=== PATIENT | male | born 1945 | race Caucasian/White ===

== ENCOUNTER 2017-05-30 09:57 | Inpatient (IN) | payer OTHER ==
[~2017-05-30] VITALS: Ht 185.4 cm; Wt 120.6 kg
[~2017-05-30 09:57] MED LIST: ACARBOSE100 MG PO; ALLOPURINOL100 MG PO; ASPIR-LOW81 MG PO; ATORVASTATIN CA80 MG PO; CYANOCOBALAM1000 MCG PO; GLIPIZIDE10 MG PO; GLUCOPHAGE500 MG PO; LASIX40 MG PO; LISINOPRIL40 MG PO; LORATADINE10 M2 PO; METOPROLOL TART50 MG PO; NEURONTIN300 MG PO; ONGLYZA2.5 MG PO; PROAIR HFA8.5 GM IH; TERAZOSIN HCL2 MG PO
[2017-05-30 11:09] LABS: HEMATOCRIT 35.4 % (38.0-50.0); HEMOGLOBIN 11.7 G/DL (12.5-16.6); MCH 30.8 PG (29.0-34.0); MCHC 33.1 G/DL (30.0-36.0); MCV 93.2 FL (86-99); PLATELET COUNT 165 K/uL (156-360); RBC DIS.WIDTH-SD 51.4 % (39-53)
[2017-05-30 11:20] LABS: CHLORIDE 104 mEq/L (99-109); POTASSIUM 3.8 mEq/L (3.7-5.4); SODIUM 139 mEq/L (136-147)
[2017-05-30 11:22] LABS: GLUCOSE 254 mg/dL (70-99)
[2017-05-30 11:26] LABS: CREATININE 1.9 mg/dL (0.6-1.3); GFR ESTIMATE (CALCULATED) 37 mL/min/ (58.99-99999); UREA NITROGEN (BUN) 21 mg/dL (9-23)
[2017-05-30 11:31] LABS: TROP-I INTERPRETATION NEGATIVE; TROPONIN-I < 0.01 ng/mL (0.0-0.30)
[2017-05-30 15:57] LABS: MAGNESIUM 1.5 mg/dL (1.3-2.7)
[2017-05-30 16:08] LABS: TROP-I INTERPRETATION NEGATIVE; TROPONIN-I 0.01 ng/mL (0.0-0.30)
[2017-05-30] MEDS ORDERED: NOVOLIN,HU100 UNITS/ SC ×2 (16:42→16:43)
[2017-05-30] MEDS ORDERED: PRILOSEC20 MG PO (16:44)
[2017-05-30] MEDS ORDERED: FISH OIL 1,0001 EAC7 PO (16:45)
[2017-05-30] MEDS ORDERED: ERGOCALCIF50000 UNIT PO (16:47)
[2017-05-30] MEDS ORDERED: CALCITRIOL0.25 MCG PO (16:47)
[2017-05-30] MEDS ORDERED: TYLENOL EXTRA500 MG PO (16:48)
[2017-05-30] MEDS ORDERED: GABAPENTIN300 MG PO (16:49)
[2017-05-30 17:17] LABS: THYROTROPIN (TSH) 2.4 MIU/L (0.4-5.5)
[2017-05-30 17:38] LABS: HDL CHOLESTEROL 30 MG/DL (Desirable>=40); LDL CHOLESTEROL 23 mg/dL (Desirable<100); NON-HDL CHOLESTEROL 59 mg/dL (Desirable<160); TOTAL CHOLESTEROL 89 mg/dL (Desirable<200); TRIGLYCERIDES 182 MG/DL (Normal: <150)
[2017-05-30 21:52] VITALS: BP 149/90; BP 175/90
[2017-05-30 22:00] LABS: BASOPHIL (%) 0.4 % (0-1); EOSINOPHIL (%) 0.1 % (0-5); HEMATOCRIT 36.4 % (38.0-50.0); HEMOGLOBIN 11.7 G/DL (12.5-16.6); IMMATURE GRANULOCYTE (%) 0.9 % (0.0-0.7); LYMPHOCYTE (%) 18.3 % (15-42); LYMPHOCYTE COUNT 1.8 K/uL (1.0-2.8); MCH 30.3 PG (29.0-34.0); MCHC 32.1 G/DL (30.0-36.0); MCV 94.3 FL (86-99); MONOCYTE (%) 6.6 % (3-12); MONOCYTE COUNT 0.6 K/uL (0-0.8); NEUTROPHIL (%) 73.7 % (45-76); NEUTROPHIL COUNT 7.2 K/uL (1.8-6.4); PLATELET COUNT 193 K/uL (156-360); RBC DIS.WIDTH-CV 15.4 % (11.8-14.6); RED BLOOD COUNT 3.86 M/uL (4.00-5.50); WHITE BLOOD COUNT 9.8 K/uL (4.1-10.2)
[2017-05-30 22:22] LABS: TROP-I INTERPRETATION NEGATIVE; TROPONIN-I 0.02 ng/mL (0.0-0.30)
[2017-05-30 23:52] VITALS: BP 146/65
[2017-05-31] VITALS (7 sets, daily range): BP systolic 130–189; BP diastolic 70–888
[2017-05-31 07:11] LABS: CHLORIDE 102 MEQ/L (99-109); CREATININE 1.7 MG/DL (0.6-1.3); GFR ESTIMATE (CALCULATED) 42 mL/min/ (58.99-99999); GLUCOSE 208 mg/dL (70-99); POTASSIUM 4.3 MEQ/L (3.7-5.4); SODIUM 138 MEQ/L (136-147); UREA NITROGEN (BUN) 21 mg/dL (9-23)
[2017-05-31 13:56] LABS: HEMOGLOBIN A1c (GLYCOHEMOGLOB) 10.1 % (Below 5.7)
[2017-06-01 03:42] VITALS: BP 148/80
[2017-06-01 06:45] LABS: BASOPHIL (%) 0.5 % (0-1); EOSINOPHIL (%) 0.1 % (0-5); HEMATOCRIT 33.2 % (38.0-50.0); HEMOGLOBIN 10.6 G/DL (12.5-16.6); IMMATURE GRANULOCYTE (%) 0.7 % (0.0-0.7); LYMPHOCYTE (%) 15.3 % (15-42); LYMPHOCYTE COUNT 1.3 K/uL (1.0-2.8); MCH 30.5 PG (29.0-34.0); MCHC 31.9 G/DL (30.0-36.0); MCV 95.4 FL (86-99); MONOCYTE (%) 9.2 % (3-12); MONOCYTE COUNT 0.8 K/uL (0-0.8); NEUTROPHIL (%) 74.2 % (45-76); NEUTROPHIL COUNT 6.1 K/uL (1.8-6.4); PLATELET COUNT 165 K/uL (156-360); RBC DIS.WIDTH-CV 15.7 % (11.8-14.6); RBC DIS.WIDTH-SD 53.7 % (39-53); RED BLOOD COUNT 3.48 M/uL (4.00-5.50); WHITE BLOOD COUNT 8.3 K/uL (4.1-10.2)
[2017-06-01 06:56] VITALS: BP 174/82
[2017-06-01 07:05] LABS: CHLORIDE 106 MEQ/L (99-109); CREATININE 1.9 MG/DL (0.6-1.3); GFR ESTIMATE (CALCULATED) 37 mL/min/ (58.99-99999); SODIUM 142 MEQ/L (136-147); UREA NITROGEN (BUN) 23 mg/dL (9-23)
[2017-06-01 07:09] LABS: GLUCOSE 120 mg/dL (70-99)
[2017-06-01 11:12] VITALS: BP 123/58
[2017-06-01 15:14] VITALS: BP 119/63
[2017-06-01 20:06] VITALS: BP 174/74
[2017-06-01 23:26] VITALS: BP 187/86
[2017-06-02] VITALS (7 sets, daily range): BP systolic 138–176; BP diastolic 66–111
[2017-06-02 06:40] LABS: CHLORIDE 106 MEQ/L (99-109); CREATININE 2.1 MG/DL (0.6-1.3); GFR ESTIMATE (CALCULATED) 33 mL/min/ (58.99-99999); GLUCOSE 119 mg/dL (70-99); POTASSIUM 4.1 MEQ/L (3.7-5.4); SODIUM 142 MEQ/L (136-147); UREA NITROGEN (BUN) 23 mg/dL (9-23)
[2017-06-03 03:43] VITALS: BP 140/72
[2017-06-03 06:51] LABS: BASOPHIL (%) 0.4 % (0-1); EOSINOPHIL (%) 0 % (0-5); HEMATOCRIT 31.7 % (38.0-50.0); HEMOGLOBIN 10.3 G/DL (12.5-16.6); IMMATURE GRANULOCYTE (%) 0.5 % (0.0-0.7); MCH 30.9 PG (29.0-34.0); MCHC 32.5 G/DL (30.0-36.0); MCV 95.2 FL (86-99); MONOCYTE (%) 9.3 % (3-12); MONOCYTE COUNT 0.7 K/uL (0-0.8); NEUTROPHIL (%) 76.8 % (45-76); PLATELET COUNT 141 K/uL (156-360); RBC DIS.WIDTH-CV 15.5 % (11.8-14.6); RBC DIS.WIDTH-SD 54.2 % (39-53); RED BLOOD COUNT 3.33 M/uL (4.00-5.50); WHITE BLOOD COUNT 7.8 K/uL (4.1-10.2)
[2017-06-03 07:15] LABS: CHLORIDE 104 MEQ/L (99-109); CREATININE 2.2 MG/DL (0.6-1.3); GFR ESTIMATE (CALCULATED) 31 mL/min/ (58.99-99999); GLUCOSE 103 mg/dL (70-99); POTASSIUM 3.9 MEQ/L (3.7-5.4); SODIUM 139 MEQ/L (136-147); UREA NITROGEN (BUN) 24 mg/dL (9-23)
[2017-06-03 07:28] VITALS: BP 152/96
[2017-06-03] MEDS ORDERED: ALLOPURINOL100 MG PO (09:14)
[2017-06-03] MEDS ORDERED: NOVOLIN,HU100 UNITS/ SC ×2 (09:17)
[2017-06-03] MEDS ORDERED: ONGLYZA2.5 MG PO (09:19)
[2017-06-03] MEDS ORDERED: ATORVASTATIN CA80 MG PO (09:20)
[2017-06-03] MEDS ORDERED: OMEPRAZOLE20 MG PO (09:20)
[2017-06-03] MEDS ORDERED: CYANOCOBALAM1000 MCG PO (09:20)
[2017-06-03] MEDS ORDERED: FISH OIL 1,0001 EAC7 PO (09:21)
[2017-06-03] MEDS ORDERED: LASIX20 MG PO (09:31)
[2017-06-03] MEDS ORDERED: ACARBOSE100 MG PO (09:32)
[2017-06-03] MEDS ORDERED: TERAZOSIN HCL2 MG PO (09:33)
[2017-06-03] MEDS ORDERED: LORATADINE10 M2 PO (09:33)
[2017-06-03] MEDS ORDERED: CALCITRIOL0.25 MCG PO (09:33)
[2017-06-03] MEDS ORDERED: ERGOCALCIF50000 UNIT PO (09:36)
[2017-06-03 11:15] VITALS: BP 183/94
[2017-06-03] MEDS ORDERED: AMLODIPINE BESY10 MG PO (12:46)
[2017-06-03] MEDS ORDERED: ELIQUIS5 MG PO (12:46)
[2017-06-03] MEDS ORDERED: APRESOLINE25 MG PO (12:46)
[2017-06-03] MEDS ORDERED: ASPIR-LOW81 MG PO (12:46)
[2017-06-03] MEDS ORDERED: AUGMENTIN875 MG PO (12:49)
[2017-06-03] MEDS ORDERED: LOPRESSOR25 MG PO (12:53)
[2017-06-03 13:51] VITALS: BP 158/79
== END 2017-06-03 15:42 | disposition home or self-care (01) | DRG 871 ==
LOC: EME 09:57 → 5SOUTH 14:12 → EDOF 14:12 → ENRESERV 14:17 → EDOF 14:32 → ENRESERV 14:50 → 5SOUTH 21:20
PROVIDERS: Emergency Medicine; Hospitalist; Internal Medicine; Physician Assistant; Physician Assistant Medical
DX: A41.9 Sepsis, unspecified organism (principal); J18.9 Pneumonia, unspecified organism; N17.9 Acute kidney failure, unspecified; I48.1 Persistent atrial fibrillation; N28.1 Cyst of kidney, acquired; N18.3 Chronic kidney disease, stage 3 (moderate); I27.20 Pulmonary hypertension, unspecified; I12.9 Hypertensive chronic kidney disease with stage 1 through stage 4 chronic kidney disease, or unspecified chronic kidney disease; E86.0 Dehydration; E11.22 Type 2 diabetes mellitus with diabetic chronic kidney disease; E78.5 Hyperlipidemia, unspecified; F40.240 Claustrophobia; F43.23 Adjustment disorder with mixed anxiety and depressed mood; I44.7 Left bundle-branch block, unspecified; K80.20 Calculus of gallbladder without cholecystitis without obstruction; E66.01 Morbid (severe) obesity due to excess calories; I65.21 Occlusion and stenosis of right carotid artery; Z60.2 Problems related to living alone; E11.65 Type 2 diabetes mellitus with hyperglycemia; F39 Unspecified mood [affective] disorder; N28.89 Other specified disorders of kidney and ureter; Z87.891 Personal history of nicotine dependence; Z79.4 Long term (current) use of insulin; Z79.82 Long term (current) use of aspirin; Z86.73 Personal history of transient ischemic attack (TIA), and cerebral infarction without residual deficits; Z68.35 Body mass index [BMI] 35.0-35.9, adult; Z98.1 Arthrodesis status; Z90.49 Acquired absence of other specified parts of digestive tract
CPT/HCPCS: 71046; 76770; 80048; 80061; 82948; 83036; 83735; 84145 90; 84443; 84484; 85025; 85027; 87040; 87449; 87502; 93005; 93306; 99202; 99281; 99285; J0295; J0360; J0456; J0696; J1650; J1815; J2405; J3475; J7030; J7040; J7050

== ENCOUNTER 2017-06-18 14:45 | Inpatient (IN) | payer OTHER ==
[~2017-06-18] VITALS: Ht 185.4 cm; Wt 185.4 kg
[~2017-06-18 14:45] MED LIST changes: +AMLODIPINE BESY10 MG PO; +APRESOLINE25 MG PO; +AUGMENTIN875 MG PO; +CALCITRIOL0.25 MCG PO; +ELIQUIS5 MG PO; +ERGOCALCIF50000 UNIT PO; +FISH OIL 1,0001 EAC7 PO; +GABAPENTIN300 MG PO; +LASIX20 MG PO; +LOPRESSOR25 MG PO; +NOVOLIN,HU100 UNITS/ SC; +OMEPRAZOLE20 MG PO; +PRILOSEC20 MG PO; +TYLENOL EXTRA500 MG PO
[2017-06-18 15:35] LABS: BASOPHIL (%) 0.4 % (0-1); EOSINOPHIL (%) 0 % (0-5); HEMATOCRIT 31.1 % (38.0-50.0); HEMOGLOBIN 10.2 G/DL (12.5-16.6); IMMATURE GRANULOCYTE (%) 0.4 % (0.0-0.7); LYMPHOCYTE (%) 15.6 % (15-42); LYMPHOCYTE COUNT 1.1 K/uL (1.0-2.8); MCH 29.9 PG (29.0-34.0); MCHC 32.8 G/DL (30.0-36.0); MCV 91.2 FL (86-99); MONOCYTE (%) 9.7 % (3-12); MONOCYTE COUNT 0.7 K/uL (0-0.8); NEUTROPHIL (%) 73.9 % (45-76); NEUTROPHIL COUNT 5.2 K/uL (1.8-6.4); PLATELET COUNT 215 K/uL (156-360); RBC DIS.WIDTH-CV 15.9 % (11.8-14.6); RBC DIS.WIDTH-SD 53.1 % (39-53); RED BLOOD COUNT 3.41 M/uL (4.00-5.50)
[2017-06-18 15:42] LABS: ALBUMIN 3.6 g/dL (3.2-4.8); CHLORIDE 112 mEq/L (99-109); POTASSIUM 3.5 mEq/L (3.7-5.4); SODIUM 139 mEq/L (136-147)
[2017-06-18 15:43] LABS: MAGNESIUM 1.9 mg/dL (1.3-2.7)
[2017-06-18 15:44] LABS: GLUCOSE 73 mg/dL (70-99)
[2017-06-18 15:45] LABS: INTER. NORMALIZED RATIO 2.1; TOTAL PROTEIN 6.9 g/dL (6.4-8.3)
[2017-06-18 15:46] LABS: TOTAL BILIRUBIN 1.1 mg/dL (0.0-1.0)
[2017-06-18 15:47] LABS: PTT 38.4 SEC (25-37)
[2017-06-18 15:48] LABS: ALKALINE PHOSPHATASE 116 IU/L (3-129); CREATININE 4.5 mg/dL (0.6-1.3); GFR ESTIMATE (CALCULATED) 14 mL/min/ (58.99-99999)
[2017-06-18 15:49] LABS: UREA NITROGEN (BUN) 45 mg/dL (9-23)
[2017-06-18 15:50] LABS: AST (GOT) 30 IU/L (2-34)
[2017-06-18 15:51] LABS: ALT (GPT) 13 IU/L (3-49); LIPASE 19 U/L (1.0-51.0)
[2017-06-18 15:57] LABS: TROP-I INTERPRETATION NEGATIVE; TROPONIN-I 0.13 ng/mL (0.0-0.30)
[2017-06-18 16:51] LABS: THYROTROPIN (TSH) 2.2 MIU/L (0.4-5.5)
[2017-06-18] MEDS ORDERED: ELIQUIS5 MG PO (17:46)
[2017-06-18] MEDS ORDERED: NORVASC10 MG PO (17:47)
[2017-06-18] MEDS ORDERED: DECARA50000 UNIT PO (17:50)
[2017-06-18] MEDS ORDERED: FISH OIL 1,0001 EA10 PO (17:51)
[2017-06-18] MEDS ORDERED: LOPRESSOR50 MG PO (17:54)
[2017-06-18] MEDS ORDERED: HYDRALAZINE HCL25 MG PO (17:59)
[2017-06-18 19:38] LABS: CARBON DIOXIDE (BICARBONATE) 17.9 MEQ/L (20-31)
[2017-06-18 19:46] LABS: ALBUMIN 3.3 g/dL (3.2-4.8); CHLORIDE 113 mEq/L (99-109); POTASSIUM 3.6 mEq/L (3.7-5.4); SODIUM 142 mEq/L (136-147)
[2017-06-18 19:48] LABS: GLUCOSE 68 mg/dL (70-99)
[2017-06-18 19:49] LABS: TOTAL PROTEIN 6.3 g/dL (6.4-8.3)
[2017-06-18 19:50] LABS: TOTAL BILIRUBIN 1.1 mg/dL (0.0-1.0)
[2017-06-18 19:52] LABS: ALKALINE PHOSPHATASE 106 IU/L (3-129); CREATININE 4.3 mg/dL (0.6-1.3); GFR ESTIMATE (CALCULATED) 14 mL/min/ (58.99-99999)
[2017-06-18 19:53] LABS: UREA NITROGEN (BUN) 44 mg/dL (9-23)
[2017-06-18 19:54] LABS: AST (GOT) 28 IU/L (2-34)
[2017-06-18 19:55] LABS: ALT (GPT) 13 IU/L (3-49)
[2017-06-18 21:00] VITALS: BP 144/90
[2017-06-18 22:17] LABS: TROP-I INTERPRETATION NEGATIVE; TROPONIN-I 0.12 ng/mL (0.0-0.30)
[2017-06-19] VITALS (7 sets, daily range): BP systolic 104–139; BP diastolic 50–68
[2017-06-19 05:24] LABS: BASOPHIL (%) 0.8 % (0-1); BASOPHIL COUNT 0.1 K/uL (0-0.1); EOSINOPHIL (%) 0.2 % (0-5); HEMATOCRIT 30.1 % (38.0-50.0); HEMOGLOBIN 9.6 G/DL (12.5-16.6); IMMATURE GRANULOCYTE (%) 0.6 % (0.0-0.7); LYMPHOCYTE (%) 17.4 % (15-42); LYMPHOCYTE COUNT 1.1 K/uL (1.0-2.8); MCH 29.4 PG (29.0-34.0); MCHC 31.9 G/DL (30.0-36.0); MCV 92.3 FL (86-99); MONOCYTE (%) 9.4 % (3-12); MONOCYTE COUNT 0.6 K/uL (0-0.8); NEUTROPHIL (%) 71.6 % (45-76); NEUTROPHIL COUNT 4.6 K/uL (1.8-6.4); PLATELET COUNT 195 K/uL (156-360); RBC DIS.WIDTH-CV 16.1 % (11.8-14.6); RBC DIS.WIDTH-SD 54.5 % (39-53); RED BLOOD COUNT 3.26 M/uL (4.00-5.50); WHITE BLOOD COUNT 6.4 K/uL (4.1-10.2)
[2017-06-19 05:34] LABS: TROP-I INTERPRETATION NEGATIVE; TROPONIN-I 0.12 ng/mL (0.0-0.30)
[2017-06-19 05:50] LABS: CHLORIDE 111 MEQ/L (99-109); CREATININE 4.4 MG/DL (0.6-1.3); GFR ESTIMATE (CALCULATED) 14 mL/min/ (58.99-99999); POTASSIUM 3.8 MEQ/L (3.7-5.4); SODIUM 142 MEQ/L (136-147); UREA NITROGEN (BUN) 43 mg/dL (9-23)
[2017-06-19 05:59] LABS: GLUCOSE 145 mg/dL (70-99)
[2017-06-19 15:18] LABS: CREATINE KINASE 696 IU/L (1-294)
[2017-06-19 15:40] LABS: BICARBONATE 16.9 mEq/L (22-26); CARBOXY HGB 1.9 % (0-5); COMMENTS - BLOOD GASES A+C+; DEVICE NC; METHEMOGLOBIN 1.2 % (0-1.5); O2 FLOW 2 L/MIN; PCO2 28 mm Hg (35-45); PO2 74 mm Hg (80-100); SITE RR; pH 7.39 (7.35-7.45)
[2017-06-19 15:57] LABS: CHLORIDE 109 MEQ/L (99-109); POTASSIUM 4.2 MEQ/L (3.7-5.4); SODIUM 138 MEQ/L (136-147)
[2017-06-19 16:02] LABS: CREATININE 4.6 MG/DL (0.6-1.3); GFR ESTIMATE (CALCULATED) 13 mL/min/ (58.99-99999); GLUCOSE 203 mg/dL (70-99); UREA NITROGEN (BUN) 44 mg/dL (9-23)
[2017-06-19 19:18] LABS: CHLORIDE 102 MEQ/L (99-109); CREATININE 4.7 MG/DL (0.6-1.3); GFR ESTIMATE (CALCULATED) 13 mL/min/ (58.99-99999); GLUCOSE 188 mg/dL (70-99); POTASSIUM 3.9 MEQ/L (3.7-5.4); SODIUM 133 MEQ/L (136-147); UREA NITROGEN (BUN) 42 mg/dL (9-23)
[2017-06-20 03:04] VITALS: BP 129/62
[2017-06-20 05:06] LABS: BASOPHIL (%) 0.6 % (0-1); EOSINOPHIL (%) 0.3 % (0-5); HEMATOCRIT 29.5 % (38.0-50.0); HEMOGLOBIN 9.3 G/DL (12.5-16.6); IMMATURE GRANULOCYTE (%) 0.5 % (0.0-0.7); LYMPHOCYTE (%) 18.1 % (15-42); LYMPHOCYTE COUNT 1.1 K/uL (1.0-2.8); MCH 28.7 PG (29.0-34.0); MCHC 31.5 G/DL (30.0-36.0); MONOCYTE (%) 11.9 % (3-12); MONOCYTE COUNT 0.7 K/uL (0-0.8); NEUTROPHIL (%) 68.6 % (45-76); NEUTROPHIL COUNT 4.3 K/uL (1.8-6.4); PLATELET COUNT 198 K/uL (156-360); RBC DIS.WIDTH-SD 53.6 % (39-53); RED BLOOD COUNT 3.24 M/uL (4.00-5.50); WHITE BLOOD COUNT 6.2 K/uL (4.1-10.2)
[2017-06-20 05:32] LABS: A/G RATIO 1.1 (1.1-1.8); ALBUMIN 3.2 G/DL (3.4-5.0); C4 COMPLEMENT 37 MG/DL (10-40); GLOBULINS 2.9 G/DL (2.3-3.5); MAGNESIUM 1.7 mg/dl (1.3-2.7); TOTAL PROTEIN 6.1 G/DL (6.4-8.2)
[2017-06-20 05:33] LABS: ALBUMIN 3.3 G/DL (3.2-4.8); CHLORIDE 104 MEQ/L (99-109); CREATINE KINASE 838 IU/L (1-294); GFR ESTIMATE (CALCULATED) 12 mL/min/ (58.99-99999); GLUCOSE 166 mg/dL (70-99); PHOSPHORUS 5.4 mg/dL (2.5-4.9); SODIUM 137 MEQ/L (136-147); UREA NITROGEN (BUN) 43 mg/dL (9-23)
[2017-06-20 05:51] LABS: URIC ACID 9.1 mg/dL (3.1-9.2)
[2017-06-20 08:05] VITALS: BP 120/86
[2017-06-20 11:57] VITALS: BP 123/60
[2017-06-20 16:00] VITALS: BP 123/61
[2017-06-20 16:33] LABS: BICARBONATE 15.7 mEq/L (22-26); CARBOXY HGB 1.4 % (0-5); METHEMOGLOBIN 1.5 % (0-1.5); PCO2 26 mm Hg (35-45); PO2 88 mm Hg (80-100); pH 7.39 (7.35-7.45)
[2017-06-20 16:34] LABS: COMMENTS - BLOOD GASES A+C+; DEVICE NC; O2 FLOW 2 L/MIN; SITE LR; TOTAL RESP RATE 25 resp/min
[2017-06-20 16:56] LABS: CHLORIDE 103 MEQ/L (99-109); CREATININE 5.1 MG/DL (0.6-1.3); GFR ESTIMATE (CALCULATED) 12 mL/min/ (58.99-99999); POTASSIUM 4.1 MEQ/L (3.7-5.4); SODIUM 135 MEQ/L (136-147); UREA NITROGEN (BUN) 49 mg/dL (9-23)
[2017-06-20 17:08] LABS: GLUCOSE 286 mg/dL (70-99)
[2017-06-20 19:20] VITALS: BP 125/64
[2017-06-20 23:52] VITALS: BP 117/58
[2017-06-21 02:46] VITALS: BP 129/60
[2017-06-21 05:39] LABS: BASOPHIL (%) 0 % (0-1); EOSINOPHIL (%) 0 % (0-5); HEMATOCRIT 27.6 % (38.0-50.0); HEMOGLOBIN 8.9 G/DL (12.5-16.6); IMMATURE GRANULOCYTE (%) 0.6 % (0.0-0.7); LYMPHOCYTE (%) 11.6 % (15-42); LYMPHOCYTE COUNT 0.6 K/uL (1.0-2.8); MCHC 32.2 G/DL (30.0-36.0); MCV 89.9 FL (86-99); MONOCYTE (%) 1.7 % (3-12); MONOCYTE COUNT 0.1 K/uL (0-0.8); NEUTROPHIL (%) 86.1 % (45-76); NEUTROPHIL COUNT 4.1 K/uL (1.8-6.4); NRBC (%) 0.4 /100 WBC (0-0); PLATELET COUNT 194 K/uL (156-360); RBC DIS.WIDTH-CV 15.9 % (11.8-14.6); RED BLOOD COUNT 3.07 M/uL (4.00-5.50); WHITE BLOOD COUNT 4.8 K/uL (4.1-10.2)
[2017-06-21 06:05] LABS: ALBUMIN 3.4 G/DL (3.2-4.8); CHLORIDE 104 MEQ/L (99-109); CREATININE 5.8 MG/DL (0.6-1.3); GFR ESTIMATE (CALCULATED) 10 mL/min/ (58.99-99999); GLUCOSE 280 mg/dL (70-99); POTASSIUM 4.6 MEQ/L (3.7-5.4); SODIUM 136 MEQ/L (136-147); UREA NITROGEN (BUN) 55 mg/dL (9-23)
[2017-06-21 07:23] VITALS: BP 111/55
[2017-06-21 10:28] VITALS: BP 102/54
[2017-06-21 14:05] LABS: HEPATITIS B SURFACE ANTIGEN Nonreactive; HEPATITIS C ANTIBODY Nonreactive
[2017-06-21 14:06] LABS: HEPATITIS B SURFACE ANTIBODY Nonreactive
[2017-06-21 14:48] LABS: ANTI-HEPATITIS B CORE (TOTAL) Nonreactive
[2017-06-21 19:00] VITALS: BP 133/68
[2017-06-21 22:30] VITALS: BP 135/66
[2017-06-22 03:00] VITALS: BP 146/66
[2017-06-22 05:06] LABS: BASOPHIL (%) 0 % (0-1); EOSINOPHIL (%) 0 % (0-5); HEMATOCRIT 28.4 % (38.0-50.0); HEMOGLOBIN 9.5 G/DL (12.5-16.6); IMMATURE GRANULOCYTE (%) 0.9 % (0.0-0.7); LYMPHOCYTE COUNT 0.5 K/uL (1.0-2.8); MCH 29.8 PG (29.0-34.0); MCHC 33.5 G/DL (30.0-36.0); MONOCYTE (%) 2.6 % (3-12); MONOCYTE COUNT 0.2 K/uL (0-0.8); NEUTROPHIL (%) 87.5 % (45-76); NEUTROPHIL COUNT 5.1 K/uL (1.8-6.4); NRBC (%) 0.5 /100 WBC (0-0); PLATELET COUNT 206 K/uL (156-360); RBC DIS.WIDTH-SD 52.3 % (39-53); RED BLOOD COUNT 3.19 M/uL (4.00-5.50); WHITE BLOOD COUNT 5.9 K/uL (4.1-10.2)
[2017-06-22 05:24] LABS: ALBUMIN 3.6 g/dL (3.2-4.8); CHLORIDE 102 mEq/L (99-109); POTASSIUM 4.1 mEq/L (3.7-5.4); SODIUM 138 mEq/L (136-147)
[2017-06-22 05:26] LABS: GLUCOSE 281 mg/dL (70-99)
[2017-06-22 05:30] LABS: PHOSPHORUS 6.1 mg/dL (2.5-4.9)
[2017-06-22 05:31] LABS: UREA NITROGEN (BUN) 48 mg/dL (9-23)
[2017-06-22 05:33] LABS: CREATINE KINASE 638 IU/L (1-294)
[2017-06-22 05:34] LABS: CREATININE 4.8 mg/dL (0.6-1.3); GFR ESTIMATE (CALCULATED) 13 mL/min/ (58.99-99999)
[2017-06-22 07:44] VITALS: BP 122/72
[2017-06-22 11:18] VITALS: BP 121/62
[2017-06-22 16:23] VITALS: BP 115/65
[2017-06-22 19:50] VITALS: BP 119/65
[2017-06-23] VITALS (7 sets, daily range): BP systolic 107–137; BP diastolic 52–71
[2017-06-23 05:27] LABS: BASOPHIL (%) 0 % (0-1); EOSINOPHIL (%) 0 % (0-5); HEMATOCRIT 28.8 % (38.0-50.0); HEMOGLOBIN 9.3 G/DL (12.5-16.6); IMMATURE GRANULOCYTE (%) 0.8 % (0.0-0.7); LYMPHOCYTE (%) 12.9 % (15-42); LYMPHOCYTE COUNT 0.7 K/uL (1.0-2.8); MCH 29.1 PG (29.0-34.0); MCHC 32.3 G/DL (30.0-36.0); MONOCYTE (%) 5.6 % (3-12); MONOCYTE COUNT 0.3 K/uL (0-0.8); NEUTROPHIL (%) 80.7 % (45-76); NEUTROPHIL COUNT 4.2 K/uL (1.8-6.4); PLATELET COUNT 204 K/uL (156-360); RBC DIS.WIDTH-CV 16.1 % (11.8-14.6); RBC DIS.WIDTH-SD 53.6 % (39-53); WHITE BLOOD COUNT 5.2 K/uL (4.1-10.2)
[2017-06-23 07:32] LABS: CHLORIDE 97 MEQ/L (99-109); CREATININE 5.5 MG/DL (0.6-1.3); GFR ESTIMATE (CALCULATED) 11 mL/min/ (58.99-99999); GLUCOSE 276 mg/dL (70-99); POTASSIUM 4.4 MEQ/L (3.7-5.4); SODIUM 135 MEQ/L (136-147); UREA NITROGEN (BUN) 65 mg/dL (9-23)
[2017-06-24 04:04] VITALS: BP 94/50
[2017-06-24 05:42] LABS: BASOPHIL (%) 0 % (0-1); EOSINOPHIL (%) 0 % (0-5); HEMATOCRIT 29.2 % (38.0-50.0); HEMOGLOBIN 9.5 G/DL (12.5-16.6); IMMATURE GRANULOCYTE (%) 0.9 % (0.0-0.7); LYMPHOCYTE (%) 13.4 % (15-42); LYMPHOCYTE COUNT 0.7 K/uL (1.0-2.8); MCH 29.1 PG (29.0-34.0); MCHC 32.5 G/DL (30.0-36.0); MCV 89.6 FL (86-99); MONOCYTE (%) 9.7 % (3-12); MONOCYTE COUNT 0.5 K/uL (0-0.8); NEUTROPHIL COUNT 4.1 K/uL (1.8-6.4); NRBC (%) 1.7 /100 WBC (0-0); PLATELET COUNT 185 K/uL (156-360); RBC DIS.WIDTH-CV 15.9 % (11.8-14.6); RBC DIS.WIDTH-SD 52.5 % (39-53); RED BLOOD COUNT 3.26 M/uL (4.00-5.50); WHITE BLOOD COUNT 5.5 K/uL (4.1-10.2)
[2017-06-24 05:53] LABS: INTER. NORMALIZED RATIO 1.8
[2017-06-24 06:07] LABS: CHLORIDE 95 MEQ/L (99-109); CREATINE KINASE 325 IU/L (1-294); GFR ESTIMATE (CALCULATED) 14 mL/min/ (58.99-99999); GLUCOSE 288 mg/dL (70-99); POTASSIUM 4.3 MEQ/L (3.7-5.4); SODIUM 134 MEQ/L (136-147); UREA NITROGEN (BUN) 55 mg/dL (9-23)
[2017-06-24 06:09] LABS: CREATININE 4.3 MG/DL (0.6-1.3)
[2017-06-24 06:47] VITALS: BP 117/63
[2017-06-24 08:16] LABS: ALPHA-1 GLOBULIN 0.42 G/DL (0.15-0.40); ALPHA-2 GLOBULIN 0.99 G/DL (0.45-0.85); BETA-GLOBULIN 0.78 G/DL (0.65-1.15); GAMMA-GLOBULIN 0.91 G/DL (0.60-1.35)
[2017-06-24 11:17] VITALS: BP 136/72
[2017-06-24 15:48] VITALS: BP 130/55
[2017-06-24 21:45] VITALS: BP 145/65
[2017-06-25 03:20] VITALS: BP 122/60
[2017-06-25 06:05] LABS: BASOPHIL (%) 0 % (0-1); EOSINOPHIL (%) 0 % (0-5); HEMATOCRIT 29.4 % (38.0-50.0); HEMOGLOBIN 9.7 G/DL (12.5-16.6); IMMATURE GRANULOCYTE (%) 1.3 % (0.0-0.7); LYMPHOCYTE (%) 13.7 % (15-42); LYMPHOCYTE COUNT 0.8 K/uL (1.0-2.8); MCH 29.8 PG (29.0-34.0); MCV 90.2 FL (86-99); MONOCYTE (%) 9.9 % (3-12); MONOCYTE COUNT 0.6 K/uL (0-0.8); NEUTROPHIL (%) 75.1 % (45-76); NEUTROPHIL COUNT 4.5 K/uL (1.8-6.4); PLATELET COUNT 168 K/uL (156-360); RBC DIS.WIDTH-SD 52.8 % (39-53); RED BLOOD COUNT 3.26 M/uL (4.00-5.50); WHITE BLOOD COUNT 5.9 K/uL (4.1-10.2)
[2017-06-25 06:35] LABS: CHLORIDE 97 MEQ/L (99-109); CREATININE 3.3 MG/DL (0.6-1.3); GFR ESTIMATE (CALCULATED) 20 mL/min/ (58.99-99999); GLUCOSE 190 mg/dL (70-99); POTASSIUM 4.1 MEQ/L (3.7-5.4); SODIUM 138 MEQ/L (136-147); UREA NITROGEN (BUN) 49 mg/dL (9-23)
[2017-06-25 08:12] VITALS: BP 128/82
[2017-06-25 11:47] VITALS: BP 127/62
[2017-06-25 16:00] VITALS: BP 114/58
[2017-06-25 19:37] VITALS: BP 144/65
[2017-06-25 23:47] VITALS: BP 156/72
[2017-06-26 03:53] VITALS: BP 118/57
[2017-06-26 06:17] LABS: BASOPHIL (%) 0.1 % (0-1); EOSINOPHIL (%) 0 % (0-5); HEMATOCRIT 30.9 % (38.0-50.0); IMMATURE GRANULOCYTE (%) 1.7 % (0.0-0.7); LYMPHOCYTE (%) 17.6 % (15-42); LYMPHOCYTE COUNT 1.2 K/uL (1.0-2.8); MCH 29.2 PG (29.0-34.0); MCHC 32.4 G/DL (30.0-36.0); MCV 90.1 FL (86-99); MONOCYTE (%) 9.5 % (3-12); MONOCYTE COUNT 0.7 K/uL (0-0.8); NEUTROPHIL (%) 71.1 % (45-76); NRBC (%) 0.4 /100 WBC (0-0); PLATELET COUNT 155 K/uL (156-360); RBC DIS.WIDTH-SD 52.2 % (39-53); RED BLOOD COUNT 3.43 M/uL (4.00-5.50)
[2017-06-26 06:37] LABS: CHLORIDE 97 MEQ/L (99-109); CREATININE 3.3 MG/DL (0.6-1.3); GFR ESTIMATE (CALCULATED) 20 mL/min/ (58.99-99999); GLUCOSE 124 mg/dL (70-99); SODIUM 137 MEQ/L (136-147); UREA NITROGEN (BUN) 66 mg/dL (9-23)
[2017-06-26 07:15] VITALS: BP 132/66
[2017-06-26 11:52] VITALS: BP 147/67
[2017-06-26 16:19] VITALS: BP 117/57
[2017-06-26 19:57] VITALS: BP 135/60
[2017-06-26 23:23] VITALS: BP 110/54
[2017-06-27 03:35] VITALS: BP 125/70
[2017-06-27 06:31] LABS: BASOPHIL (%) 0.2 % (0-1); EOSINOPHIL (%) 0 % (0-5); HEMATOCRIT 30.6 % (38.0-50.0); IMMATURE GRANULOCYTE (%) 1.2 % (0.0-0.7); LYMPHOCYTE (%) 14.7 % (15-42); MCH 29.7 PG (29.0-34.0); MCHC 32.7 G/DL (30.0-36.0); MCV 90.8 FL (86-99); MONOCYTE (%) 9.1 % (3-12); MONOCYTE COUNT 0.6 K/uL (0-0.8); NEUTROPHIL (%) 74.8 % (45-76); NEUTROPHIL COUNT 4.9 K/uL (1.8-6.4); PLATELET COUNT 137 K/uL (156-360); RBC DIS.WIDTH-CV 16.2 % (11.8-14.6); RBC DIS.WIDTH-SD 52.9 % (39-53); RED BLOOD COUNT 3.37 M/uL (4.00-5.50); WHITE BLOOD COUNT 6.5 K/uL (4.1-10.2)
[2017-06-27 06:57] LABS: CHLORIDE 98 MEQ/L (99-109); GFR ESTIMATE (CALCULATED) 28 mL/min/ (58.99-99999); POTASSIUM 3.9 MEQ/L (3.7-5.4); SODIUM 140 MEQ/L (136-147); UREA NITROGEN (BUN) 42 mg/dL (9-23)
[2017-06-27 07:00] LABS: GLUCOSE 58 mg/dL (70-99)
[2017-06-27 07:01] LABS: CREATININE 2.4 MG/DL (0.6-1.3)
[2017-06-27 07:11] VITALS: BP 131/67
[2017-06-27 11:30] VITALS: BP 123/58
[2017-06-27 17:23] VITALS: BP 178/79
[2017-06-27 19:11] VITALS: BP 145/70
[2017-06-27 23:16] VITALS: BP 166/72
[2017-06-28 00:11] LABS: APPEARANCE SL.HAZY ((CLEAR)); BILIRUBIN NEGATIVE; BLOOD LARGE; COLOR YELLOW ((YELLOW)); GLUCOSE (STRIP) >=500; KETONES NEGATIVE; LEUKOCYTES NEGATIVE; NITRITE NEGATIVE; PROTEIN (STRIP) 100; SPECIFIC GRAVITY 1.011 (1.000-1.030); UROBILINOGEN 0.2 MG/DL (0.2-1.0)
[2017-06-28 00:48] LABS: BACTERIA NONE SEEN /HPF; EPITHELIAL CELLS RARE /HPF; MUCUS NONE SEEN /LPF; RED BLOOD CELLS TNTC /HPF (0-5); WHITE BLOOD CELLS 0-5 /HPF (0-5)
[2017-06-28 02:43] VITALS: BP 133/68
[2017-06-28 07:50] VITALS: BP 143/65
[2017-06-28 08:20] LABS: BASOPHIL (%) 0 % (0-1); EOSINOPHIL (%) 0.1 % (0-5); IMMATURE GRANULOCYTE (%) 1.6 % (0.0-0.7); LYMPHOCYTE (%) 14.2 % (15-42); LYMPHOCYTE COUNT 1.1 K/uL (1.0-2.8); MCH 29.6 PG (29.0-34.0); MCHC 32.3 G/DL (30.0-36.0); MCV 91.7 FL (86-99); MONOCYTE (%) 9.3 % (3-12); MONOCYTE COUNT 0.7 K/uL (0-0.8); NEUTROPHIL (%) 74.8 % (45-76); NEUTROPHIL COUNT 5.7 K/uL (1.8-6.4); PLATELET COUNT 130 K/uL (156-360); RBC DIS.WIDTH-CV 16.3 % (11.8-14.6); RED BLOOD COUNT 3.38 M/uL (4.00-5.50); WHITE BLOOD COUNT 7.6 K/uL (4.1-10.2)
[2017-06-28 08:47] LABS: CHLORIDE 99 MEQ/L (99-109); CREATININE 2.4 MG/DL (0.6-1.3); GFR ESTIMATE (CALCULATED) 28 mL/min/ (58.99-99999); GLUCOSE 167 mg/dL (70-99); PHOSPHORUS 2.7 mg/dL (2.5-4.9); POTASSIUM 3.8 MEQ/L (3.7-5.4); SODIUM 139 MEQ/L (136-147); UREA NITROGEN (BUN) 57 mg/dL (9-23)
[2017-06-28 11:51] VITALS: BP 163/70
[2017-06-28 16:00] VITALS: BP 185/72
[2017-06-28 19:54] VITALS: BP 121/60
[2017-06-28 23:37] VITALS: BP 156/77
[2017-06-29 03:56] VITALS: BP 141/67
[2017-06-29 07:30] VITALS: BP 145/65
[2017-06-29 09:48] LABS: CHLORIDE 98 MEQ/L (99-109); GFR ESTIMATE (CALCULATED) 39 mL/min/ (58.99-99999); GLUCOSE 227 mg/dL (70-99); POTASSIUM 3.7 MEQ/L (3.7-5.4); SODIUM 137 MEQ/L (136-147); UREA NITROGEN (BUN) 33 mg/dL (9-23)
[2017-06-29 09:50] LABS: CREATININE 1.8 MG/DL (0.6-1.3)
[2017-06-29 11:00] VITALS: BP 153/67
[2017-06-29 15:00] LABS: UR CREATININE CONCENTRATION 53.5 MG/DL
[2017-06-29 16:45] VITALS: BP 190/95
[2017-06-29 20:00] VITALS: BP 177/78
[2017-06-29 23:53] VITALS: BP 142/65
[2017-06-30 03:58] VITALS: BP 173/78
[2017-06-30 06:23] LABS: BASOPHIL (%) 0.1 % (0-1); EOSINOPHIL (%) 0 % (0-5); HEMATOCRIT 33.3 % (38.0-50.0); HEMOGLOBIN 10.5 G/DL (12.5-16.6); IMMATURE GRANULOCYTE (%) 0.9 % (0.0-0.7); LYMPHOCYTE (%) 16.3 % (15-42); LYMPHOCYTE COUNT 1.1 K/uL (1.0-2.8); MCH 28.5 PG (29.0-34.0); MCHC 31.5 G/DL (30.0-36.0); MCV 90.2 FL (86-99); MONOCYTE COUNT 0.8 K/uL (0-0.8); NEUTROPHIL (%) 70.7 % (45-76); PLATELET COUNT 139 K/uL (156-360); RBC DIS.WIDTH-CV 16.1 % (11.8-14.6); RBC DIS.WIDTH-SD 53.2 % (39-53); RED BLOOD COUNT 3.69 M/uL (4.00-5.50)
[2017-06-30 06:57] LABS: CHLORIDE 100 MEQ/L (99-109); CREATININE 1.9 MG/DL (0.6-1.3); GFR ESTIMATE (CALCULATED) 37 mL/min/ (58.99-99999); GLUCOSE 86 mg/dL (70-99); POTASSIUM 3.5 MEQ/L (3.7-5.4); SODIUM 137 MEQ/L (136-147); UREA NITROGEN (BUN) 35 mg/dL (9-23)
[2017-06-30 07:55] VITALS: BP 150/72
[2017-06-30 11:56] VITALS: BP 150/70
[2017-06-30 15:21] LABS: C DIFF TOXIN NEGATIVE (NEGATIVE)
[2017-06-30 15:58] VITALS: BP 164/80
[2017-06-30 19:47] VITALS: BP 159/78
[2017-06-30 23:45] VITALS: BP 146/67
[2017-07-01 03:29] VITALS: BP 146/78
[2017-07-01 05:58] LABS: BASOPHIL (%) 0.2 % (0-1); EOSINOPHIL (%) 0 % (0-5); HEMATOCRIT 31.7 % (38.0-50.0); HEMOGLOBIN 10.5 G/DL (12.5-16.6); IMMATURE GRANULOCYTE (%) 1.2 % (0.0-0.7); LYMPHOCYTE (%) 19.5 % (15-42); LYMPHOCYTE COUNT 1.3 K/uL (1.0-2.8); MCH 30.2 PG (29.0-34.0); MCHC 33.1 G/DL (30.0-36.0); MCV 91.1 FL (86-99); MONOCYTE (%) 13.4 % (3-12); MONOCYTE COUNT 0.9 K/uL (0-0.8); NEUTROPHIL (%) 65.7 % (45-76); NEUTROPHIL COUNT 4.3 K/uL (1.8-6.4); PLATELET COUNT 128 K/uL (156-360); RBC DIS.WIDTH-CV 16.3 % (11.8-14.6); RBC DIS.WIDTH-SD 54.1 % (39-53); RED BLOOD COUNT 3.48 M/uL (4.00-5.50); WHITE BLOOD COUNT 6.6 K/uL (4.1-10.2)
[2017-07-01 06:24] LABS: CHLORIDE 99 MEQ/L (99-109); GFR ESTIMATE (CALCULATED) 35 mL/min/ (58.99-99999); GLUCOSE 101 mg/dL (70-99); MAGNESIUM 1.4 mg/dl (1.3-2.7); PHOSPHORUS 2.7 mg/dL (2.5-4.9); POTASSIUM 3.7 MEQ/L (3.7-5.4); SODIUM 136 MEQ/L (136-147); UREA NITROGEN (BUN) 38 mg/dL (9-23)
[2017-07-01 07:34] VITALS: BP 175/74
[2017-07-01 11:05] VITALS: BP 136/90
[2017-07-01] MEDS ORDERED: ALLOPURINOL100 MG PO (13:46)
[2017-07-01] MEDS ORDERED: APRESOLINE10 MG PO (13:46)
[2017-07-01] MEDS ORDERED: ASPIR-LOW81 MG PO (13:46)
[2017-07-01 15:00] VITALS: BP 173/86
[2017-07-01 19:34] VITALS: BP 137/67
[2017-07-02 00:27] VITALS: BP 156/70
[2017-07-02 04:50] VITALS: BP 140/78
[2017-07-02 06:14] LABS: BASOPHIL (%) 0.2 % (0-1); EOSINOPHIL (%) 0.2 % (0-5); HEMATOCRIT 32.4 % (38.0-50.0); HEMOGLOBIN 10.4 G/DL (12.5-16.6); LYMPHOCYTE (%) 21.7 % (15-42); LYMPHOCYTE COUNT 1.2 K/uL (1.0-2.8); MCH 29.2 PG (29.0-34.0); MCHC 32.1 G/DL (30.0-36.0); MONOCYTE (%) 14.5 % (3-12); MONOCYTE COUNT 0.8 K/uL (0-0.8); NEUTROPHIL (%) 62.4 % (45-76); NEUTROPHIL COUNT 3.6 K/uL (1.8-6.4); PLATELET COUNT 114 K/uL (156-360); RBC DIS.WIDTH-CV 16.3 % (11.8-14.6); RBC DIS.WIDTH-SD 54.4 % (39-53); RED BLOOD COUNT 3.56 M/uL (4.00-5.50); WHITE BLOOD COUNT 5.7 K/uL (4.1-10.2)
[2017-07-02 06:35] LABS: CHLORIDE 101 MEQ/L (99-109); GFR ESTIMATE (CALCULATED) 35 mL/min/ (58.99-99999); GLUCOSE 77 mg/dL (70-99); POTASSIUM 3.7 MEQ/L (3.7-5.4); SODIUM 136 MEQ/L (136-147); UREA NITROGEN (BUN) 38 mg/dL (9-23)
[2017-07-02 07:38] VITALS: BP 147/82
[2017-07-02] MEDS ORDERED: LOPRESSOR25 MG PO (08:52)
[2017-07-02 11:26] VITALS: BP 133/85
== END 2017-07-02 15:44 | DRG 193 ==
LOC: EME 14:45 → EDOF 17:46 → 4EAST 17:46 → ENRESERV 17:47 → 4EAST 21:07 → ENRESERV 06-24 19:52 → 5EAST 06-24 21:35 → ENPENDDIS 07-02 14:30 → 5EAST 07-02 15:44
PROVIDERS: Emergency Medicine; Hospitalist; Internal Medicine; Internal Medicine Nephrology; Physician Assistant Medical
PROC: 02HV33Z Insertion of Infusion Device into Superior Vena Cava, Percutaneous Approach (ICD-10-PCS; principal; 2017-06-21)
PROC: 5A1D70Z Performance of Urinary Filtration, Intermittent, Less than 6 Hours Per Day (ICD-10-PCS; 2017-06-21)
DX: J18.9 Pneumonia, unspecified organism (principal); Y95 Nosocomial condition; J96.21 Acute and chronic respiratory failure with hypoxia; J20.9 Acute bronchitis, unspecified; J44.0 Chronic obstructive pulmonary disease with (acute) lower respiratory infection; J44.1 Chronic obstructive pulmonary disease with (acute) exacerbation; N17.9 Acute kidney failure, unspecified; E11.649 Type 2 diabetes mellitus with hypoglycemia without coma; N18.5 Chronic kidney disease, stage 5; I12.0 Hypertensive chronic kidney disease with stage 5 chronic kidney disease or end stage renal disease; E11.22 Type 2 diabetes mellitus with diabetic chronic kidney disease; R68.0 Hypothermia, not associated with low environmental temperature; D64.9 Anemia, unspecified; D68.59 Other primary thrombophilia; E87.70 Fluid overload, unspecified; E87.2 Acidosis; E87.6 Hypokalemia; I25.10 Atherosclerotic heart disease of native coronary artery without angina pectoris; I27.20 Pulmonary hypertension, unspecified; I48.2 Chronic atrial fibrillation; K21.9 Gastro-esophageal reflux disease without esophagitis; E78.5 Hyperlipidemia, unspecified; G89.29 Other chronic pain; M54.5 Low back pain; Z66 Do not resuscitate; F06.4 Anxiety disorder due to known physiological condition; F32.9 Major depressive disorder, single episode, unspecified; Z99.2 Dependence on renal dialysis; I65.22 Occlusion and stenosis of left carotid artery; E66.01 Morbid (severe) obesity due to excess calories; Z68.37 Body mass index [BMI] 37.0-37.9, adult; I44.7 Left bundle-branch block, unspecified; M19.90 Unspecified osteoarthritis, unspecified site; M25.559 Pain in unspecified hip; R00.1 Bradycardia, unspecified; R47.81 Slurred speech; N28.89 Other specified disorders of kidney and ureter; Z79.01 Long term (current) use of anticoagulants; Z79.4 Long term (current) use of insulin; Z82.49 Family history of ischemic heart disease and other diseases of the circulatory system; Z83.3 Family history of diabetes mellitus; Z86.73 Personal history of transient ischemic attack (TIA), and cerebral infarction without residual deficits; Z87.01 Personal history of pneumonia (recurrent); Z87.891 Personal history of nicotine dependence; Z96.651 Presence of right artificial knee joint; F10.11 Alcohol abuse, in remission; Z98.1 Arthrodesis status
CPT/HCPCS: 36600; 70450; 71045; 71046; 71250; 72100; 76770; 78582; 80047; 80048; 80048 91; 80053; 80069; 81003; 82550; 82570; 82803; 82948; 83605; 83690; 83735; 83880; 84100; 84145 90; 84156; 84165; 84166; 84300; 84443; 84484; 84550; 85025; 85027; 85610; 85652; 85730; 86021 90; 86038; 86160; 86704; 86706; 86803; 87040; 87070; 87205; 87340; 87493; 87502; 89190; 93005; 94640; 94640 76; 94760; 94799; 97530 GO; 97530 GP; 99202; 99281; 99285; A9539; A9540; C1751; C1752; J0456; J0692; J1100; J1644; J1815; J1940; J2270; J2543; J2930; J3370; J7030; J7050; J7070; J7512